=== PATIENT | female | born 1965 | race Caucasian/White ===

== ENCOUNTER 2022-06-18 15:34 | Emergency (ER) | payer MEDICAID ==
[~2022-06-18] VITALS: Ht 162.6 cm; Wt 68.0 kg
[2022-06-18] MEDS ORDERED: KETOROLAC 60MG/2ML VIAL IM ONE (16:15)
[2022-06-18 16:28] VITALS: BP 148/67
[2022-06-18] MEDS ORDERED: HYDR-4001 MT (18:44)
[2022-06-18] MEDS ORDERED: IBUP-2029 MT (18:44)
== END 2022-06-18 20:29 | disposition home or self-care (01) ==
LOC: ER 15:34
DX: S42.392A Other fracture of shaft of left humerus, initial encounter for closed fracture (principal); W01.0XXA Fall on same level from slipping, tripping and stumbling without subsequent striking against object, initial encounter; Y93.89 Activity, other specified; Y92.89 Other specified places as the place of occurrence of the external cause
CPT/HCPCS: 73030; 73060; 73070; 96372; 99284; J1885; A4565